=== PATIENT | male | born 1955 | race Caucasian/White ===

== ENCOUNTER 2017-06-29 07:58 | Inpatient (IN) | payer OTHER ==
[~2017-06-29 07:58] MED LIST: GLYCOPYRROLATE 0.4 MG INJ; NEOSTIGMINE 3 MG/3 ML SYRINGE
[2017-06-29] MEDS: ONDANSETRON 4 MG INJ IV ×2 (09:47→15:37)
[2017-06-29] MEDS: morphine 4 MG/ML VIAL IV (09:47)
[2017-06-29] MEDS: SOD CHLORIDE 0.9% 500 ML IV (09:47)
[2017-06-29 09:57] LABS: ADD MAN DIFF? NO
[2017-06-29 10:00] LABS: WHITE BLOOD COUNT 19.4 10^3/ul (4.8-10.8)
[2017-06-29 10:00] LABS: BASOPHIL # 0.1 10^3/ul (0.0-0.1); BASOPHILS % 0.3 % (0.0-2.0); EOSINOPHILS % 0.2 % (0.0-7.0); HEMOGLOBIN 17.2 g/dl (14.0-18.0); LYMPHOCYTES # 1.2 10^3/ul (0.8-2.9); LYMPHOCYTES % 6.1 % (15.0-51.0); MEAN CORPUSCULAR HGB CONC 33.7 g/dl (32.0-37.0); MEAN CORPUSCULAR VOLUME 97.7 fl (82.0-101.0); MEAN PLATELET VOLUME 9.1 fl (7.4-10.4); MONOCYTE # 0.6 10^3/ul (0.3-0.9); MONOCYTES % 3.1 % (0.0-11.0); NEUTROPHIL # 17.4 10^3/ul (1.6-7.5); NEUTROPHILS % 89.7 % (39.0-77.0); PLATELET COUNT 417 10^3/UL (140-415); RED BLOOD COUNT 5.22 10^6/ul (4.70-6.10)
[2017-06-29 10:19] LABS: ALANINE AMINOTRANSFERASE 48 IU/L (13-69); ALBUMIN 4.3 g/dl (3.3-4.9); ALBUMIN/GLOBULIN RATIO 0.97; ALKALINE PHOSPHATASE 90 IU/L (42-121); ANION GAP 18 (8-16); ASPARTATE AMINO TRANSFERASE 38 IU/L (15-46); BILIRUBIN,INDIRECT 0.8 mg/dl (0-1.1); BILIRUBIN,TOTAL 0.8 mg/dl (0.2-1.3); BLOOD UREA NITROGEN 13 mg/dl (7-20); CALCIUM 9.6 mg/dl (8.4-10.2); CARBON DIOXIDE 28 mmol/L (21-31); CHLORIDE 102 mmol/L (97-110); CREATININE 1.41 mg/dl (0.61-1.24); GLUCOSE 169 mg/dl (70-220); LIPASE 223 U/L (23-300); POTASSIUM 4.4 mmol/L (3.5-5.1); SODIUM 144 mmol/L (135-144); TOTAL PROTEIN 8.7 g/dl (6.1-8.1)
[2017-06-29 10:31] LABS: TROPONIN-I < 0.012 ng/ml (0.00-0.12)
[2017-06-29] MEDS: SOD CHLORIDE 0.9% 1,000 ML IV ×2 (11:35→18:27)
[2017-06-29] MEDS: metroNIDAZOLE 500 MG/NS (PMX) 100 ML IVPB ×2 (11:35→22:00)
[2017-06-29] MEDS: CIPROFLOXACIN 400MG/D5W 200 ML IVPB ×2 (12:05→23:36)
[2017-06-29 12:41] LABS: ADD UMIC YES; UR CLARITY CLEAR (CLEAR); UR COLOR YELLOW (YELLOW)
[2017-06-29 12:42] LABS: UR GLUCOSE (Dip) NEGATIVE (NEGATIVE); UR KETONES (Dip) NEGATIVE (NEGATIVE); UR SPECIFIC GRAVITY (Dip) 1.019 (1.003-1.030); UR TOTAL PROTEIN (Dip) 2+ mg/dl (NEGATIVE)
[2017-06-29 12:43] LABS: UR ASCORBIC ACID NEGATIVE (NEGATIVE); UR BILIRUBIN (Dip) NEGATIVE (NEGATIVE); UR BLOOD (Dip) 2+ mg/dL (NEGATIVE); UR LEUKOCYTE ESTERASE (Dip) NEGATIVE Leu/ul (NEGATIVE); UR NITRITE (Dip) NEGATIVE (NEGATIVE); UR UROBILINOGEN (Dip) 2+ mg/dL (NEGATIVE)
[2017-06-29 12:57] LABS: INR 1.09; PROTIME 14.2 Sec (11.9-14.9); PT RATIO 1.1
[2017-06-29 12:58] LABS: PARTIAL THROMBOPLASTIN TIME 26.2 Sec (25.0-35.0)
[2017-06-29] MEDS ORDERED: MIDAZOLAM 1 MG/ML 2 ML INJ (13:04)
[2017-06-29] MEDS ORDERED: PHENYLephrine (100 MCG/ML) 5ML SYG (13:22)
[2017-06-29] MEDS ORDERED: PHENYLephrine 10 MG INJ (13:28)
[2017-06-29] MEDS ORDERED: METHYLENE BLUE 1% 10 ML INJ (14:01)
[2017-06-29 14:33] LABS: UR BACTERIA FEW /HPF (NONE SEEN); UR SQUAMOUS EPITHELIAL CELL FEW /HPF (FEW)
[2017-06-29] MEDS ORDERED: ETOMIDATE 20 MG INJ (14:41)
[2017-06-29] MEDS ORDERED: SUCCINYLCHOLINE CHLORIDE 100 MG/5 ML SYG IV (14:41)
[2017-06-29] MEDS ORDERED: ROCURONIUM 50 MG INJ (14:41)
[2017-06-29] MEDS ORDERED: LIDOCAINE 2% (SDV) 5 ML INJ (14:41)
[2017-06-29] MEDS ORDERED: metroNIDAZOLE 500 MG/NS (PMX) 100 ML IVPB (14:54)
[2017-06-29] MEDS ORDERED: CEFAZOLIN 1 GM INJ (14:54)
[2017-06-29] MEDS ORDERED: 1/2 NS + KCL 20 MEQ 1,000 ML IV (15:00)
[2017-06-29] MEDS ORDERED: ONDANSETRON 4 MG INJ IV ×2 (15:19→15:30)
[2017-06-29] MEDS ORDERED: EPHEDrine SULFATE 50 MG/5 ML SYG IV (15:30)
[2017-06-29] MEDS ORDERED: FENTAnyl 50 MCG/ML VIAL IV (15:30)
[2017-06-29] MEDS ORDERED: HYDROmorphONE (0.2 MG/ML) 10ML SYG IV (15:30)
[2017-06-29] MEDS ORDERED: DIPHENHYDRAMINE 50 MG INJ IV (15:30)
[2017-06-29] MEDS ORDERED: MEPERIDINE 25 MG INJ IV (15:30)
[2017-06-29] MEDS: HYDROmorphONE (0.2 MG/ML) 10ML SYG IV (15:52)
[2017-06-29] MEDS ORDERED: SOD CHLORIDE 0.9% 1,000 ML IV (16:48)
[2017-06-29] MEDS ORDERED: ACETAMINOPHEN 325 MG TAB PO (17:00)
[2017-06-29] MEDS ORDERED: ACETAMINOPHEN 650 MG SUPP PR (17:00)
[2017-06-29] MEDS ORDERED: NACL 0.9% 3 ML SYG IV (17:00)
[2017-06-29] MEDS: HYDROmorphONE 0.5 MG/0.5 ML SYG IV ×2 (18:31→22:16)
[2017-06-29] MEDS ORDERED: CIPROFLOXACIN 400MG/D5W 200 ML IVPB (21:00)
[2017-06-29] MEDS: PANTOPRAZOLE 40 MG INJ IV (22:12)
[2017-06-29] MEDS: CEFEPIME 1GM/50 ML (PMX) 50 ML IVPB (22:16)
[2017-06-30] MEDS: metroNIDAZOLE 500 MG/NS (PMX) 100 ML IVPB ×4 (00:54→22:17)
[2017-06-30] MEDS: SOD CHLORIDE 0.9% 1,000 ML IV ×4 (01:00→18:03)
[2017-06-30 05:07] LABS: ADD MAN DIFF? NO
[2017-06-30 05:11] LABS: BASOPHILS % 0.1 % (0.0-2.0); HEMATOCRIT 43.5 % (42.0-52.0); HEMOGLOBIN 14.7 g/dl (14.0-18.0); LYMPHOCYTES # 0.9 10^3/ul (0.8-2.9); LYMPHOCYTES % 4.6 % (15.0-51.0); MEAN CORPUSCULAR HEMOGLOBIN 33.4 pg (29.0-33.0); MEAN CORPUSCULAR HGB CONC 33.8 g/dl (32.0-37.0); MEAN CORPUSCULAR VOLUME 98.9 fl (82.0-101.0); MEAN PLATELET VOLUME 9.1 fl (7.4-10.4); MONOCYTE # 0.8 10^3/ul (0.3-0.9); MONOCYTES % 4.2 % (0.0-11.0); NEUTROPHIL # 17.9 10^3/ul (1.6-7.5); NEUTROPHILS % 90.6 % (39.0-77.0); PLATELET COUNT 306 10^3/UL (140-415); RED CELL DISTRIBUTION WIDTH 12.5 % (11.5-14.5)
[2017-06-30 05:11] LABS: WHITE BLOOD COUNT 19.7 10^3/ul (4.8-10.8)
[2017-06-30 05:35] LABS: ALANINE AMINOTRANSFERASE 40 IU/L (13-69); ALBUMIN 3.1 g/dl (3.3-4.9); ALKALINE PHOSPHATASE 53 IU/L (42-121); ANION GAP 14 (8-16); ASPARTATE AMINO TRANSFERASE 31 IU/L (15-46); BILIRUBIN,INDIRECT 0.5 mg/dl (0-1.1); BILIRUBIN,TOTAL 0.5 mg/dl (0.2-1.3); BLOOD UREA NITROGEN 16 mg/dl (7-20); CALCIUM 8.2 mg/dl (8.4-10.2); CARBON DIOXIDE 27 mmol/L (21-31); CHLORIDE 105 mmol/L (97-110); CREATININE 1.47 mg/dl (0.61-1.24); GLUCOSE 120 mg/dl (70-220); POTASSIUM 5.1 mmol/L (3.5-5.1); SODIUM 141 mmol/L (135-144); TOTAL PROTEIN 6.2 g/dl (6.1-8.1)
[2017-06-30 05:38] LABS: MAGNESIUM 1.4 mg/dl (1.7-2.5)
[2017-06-30 05:38] LABS: PHOSPHORUS 3.8 mg/dl (2.5-4.9)
[2017-06-30] MEDS ORDERED: PANTOPRAZOLE 40 MG INJ IV (06:00)
[2017-06-30] MEDS: PANTOPRAZOLE 40 MG INJ IV ×2 (09:34→21:12)
[2017-06-30 09:36] LABS: HDL CHOLESTEROL 27 mg/dl (30-78); TRIGLYCERIDES 77 mg/dl (0-149)
[2017-06-30 09:40] LABS: CHOLESTEROL < 50 mg/dl (100-200)
[2017-06-30 09:41] LABS: HEMOGLOBIN A1C 6.3 % (0-5.9)
[2017-06-30] MEDS: CEFEPIME 1GM/50 ML (PMX) 50 ML IVPB ×2 (10:52→21:12)
[2017-06-30] MEDS: MAGNESIUM SULFATE 3 GM in DEXTROSE 5% 100 ML IVPB (10:53)
[2017-06-30] MEDS: HYDROmorphONE 0.5 MG/0.5 ML SYG IV (21:14)
[2017-07-01] MEDS: SOD CHLORIDE 0.9% 1,000 ML IV ×6 (01:00→23:49)
[2017-07-01 05:17] LABS: ADD MAN DIFF? NO
[2017-07-01] MEDS: metroNIDAZOLE 500 MG/NS (PMX) 100 ML IVPB ×3 (05:20→21:26)
[2017-07-01 05:22] LABS: BASOPHILS % 0.2 % (0.0-2.0); EOSINOPHILS % 0.1 % (0.0-7.0); HEMATOCRIT 39.8 % (42.0-52.0); HEMOGLOBIN 12.9 g/dl (14.0-18.0); LYMPHOCYTES # 0.9 10^3/ul (0.8-2.9); LYMPHOCYTES % 5.3 % (15.0-51.0); MEAN CORPUSCULAR HEMOGLOBIN 33.1 pg (29.0-33.0); MEAN CORPUSCULAR HGB CONC 32.4 g/dl (32.0-37.0); MEAN CORPUSCULAR VOLUME 102.1 fl (82.0-101.0); MEAN PLATELET VOLUME 9.3 fl (7.4-10.4); MONOCYTE # 0.9 10^3/ul (0.3-0.9); MONOCYTES % 5.2 % (0.0-11.0); NEUTROPHIL # 15.4 10^3/ul (1.6-7.5); NEUTROPHILS % 88.5 % (39.0-77.0); PLATELET COUNT 256 10^3/UL (140-415); RED CELL DISTRIBUTION WIDTH 12.6 % (11.5-14.5)
[2017-07-01 05:22] LABS: WHITE BLOOD COUNT 17.3 10^3/ul (4.8-10.8)
[2017-07-01 05:45] LABS: PHOSPHORUS 3.1 mg/dl (2.5-4.9)
[2017-07-01 05:45] LABS: MAGNESIUM 2.2 mg/dl (1.7-2.5)
[2017-07-01 05:54] LABS: ANION GAP 14 (8-16); BLOOD UREA NITROGEN 16 mg/dl (7-20); CALCIUM 8.4 mg/dl (8.4-10.2); CARBON DIOXIDE 26 mmol/L (21-31); CHLORIDE 108 mmol/L (97-110); CREATININE 1.41 mg/dl (0.61-1.24); GLUCOSE 102 mg/dl (70-220); POTASSIUM 4.9 mmol/L (3.5-5.1); SODIUM 143 mmol/L (135-144)
[2017-07-01] MEDS: INFLUENZA VIRUS VACCINE 0.5 ML (DISPENSING) IM* (09:00)
[2017-07-01] MEDS: CEFEPIME 1GM/50 ML (PMX) 50 ML IVPB ×2 (09:14→20:31)
[2017-07-01] MEDS: PANTOPRAZOLE 40 MG INJ IV ×2 (09:14→20:27)
[2017-07-01] MEDS: HYDROmorphONE 0.5 MG/0.5 ML SYG IV ×3 (09:14→23:49)
[2017-07-01] MEDS: LORAZEPAM 2 MG INJ IV (23:10)
[2017-07-02 00:16] LABS: CREATININE,URINE RANDOM 91.56 mg/dl (20-370)
[2017-07-02 00:40] LABS: SODIUM,URINE RANDOM 175 mmol/L (30-90)
[2017-07-02 05:07] LABS: ADD MAN DIFF? NO
[2017-07-02 05:11] LABS: BASOPHILS % 0.3 % (0.0-2.0); EOSINOPHILS # 0.1 10^3/ul (0.0-0.5); HEMATOCRIT 35.1 % (42.0-52.0); HEMOGLOBIN 11.7 g/dl (14.0-18.0); LYMPHOCYTES # 1.2 10^3/ul (0.8-2.9); LYMPHOCYTES % 11.1 % (15.0-51.0); MEAN CORPUSCULAR HEMOGLOBIN 33.6 pg (29.0-33.0); MEAN CORPUSCULAR HGB CONC 33.3 g/dl (32.0-37.0); MEAN CORPUSCULAR VOLUME 100.9 fl (82.0-101.0); MEAN PLATELET VOLUME 9.5 fl (7.4-10.4); MONOCYTE # 0.7 10^3/ul (0.3-0.9); MONOCYTES % 6.5 % (0.0-11.0); NEUTROPHILS % 80.7 % (39.0-77.0); PLATELET COUNT 215 10^3/UL (140-415); RED BLOOD COUNT 3.48 10^6/ul (4.70-6.10); RED CELL DISTRIBUTION WIDTH 12.7 % (11.5-14.5)
[2017-07-02 05:11] LABS: WHITE BLOOD COUNT 11.2 10^3/ul (4.8-10.8)
[2017-07-02 05:28] LABS: MAGNESIUM 2.1 mg/dl (1.7-2.5)
[2017-07-02 05:28] LABS: PHOSPHORUS 3.2 mg/dl (2.5-4.9)
[2017-07-02 05:40] LABS: ANION GAP 13 (8-16); BLOOD UREA NITROGEN 15 mg/dl (7-20); CALCIUM 8.4 mg/dl (8.4-10.2); CARBON DIOXIDE 24 mmol/L (21-31); CHLORIDE 110 mmol/L (97-110); CREATININE 1.13 mg/dl (0.61-1.24); GLUCOSE 74 mg/dl (70-220); POTASSIUM 3.9 mmol/L (3.5-5.1); SODIUM 143 mmol/L (135-144)
[2017-07-02] MEDS: metroNIDAZOLE 500 MG/NS (PMX) 100 ML IVPB ×3 (05:44→21:07)
[2017-07-02] MEDS: HYDROmorphONE 0.5 MG/0.5 ML SYG IV ×4 (05:44→20:04)
[2017-07-02 06:54] LABS: URIC ACID 4.7 mg/dl (3.1-7.9)
[2017-07-02 06:54] LABS: CREATINE KINASE 101 IU/L (23-200)
[2017-07-02] MEDS: CEFEPIME 1GM/50 ML (PMX) 50 ML IVPB ×2 (09:20→20:02)
[2017-07-02] MEDS: PANTOPRAZOLE 40 MG INJ IV ×2 (09:20→20:02)
[2017-07-02] MEDS: SOD CHLORIDE 0.9% 1,000 ML IV ×2 (09:21→19:54)
[2017-07-03] MEDS: HYDROmorphONE 0.5 MG/0.5 ML SYG IV (00:08)
[2017-07-03] MEDS: SOD CHLORIDE 0.9% 1,000 ML IV ×3 (01:00→15:39)
[2017-07-03 05:20] LABS: ADD MAN DIFF? NO
[2017-07-03 05:27] LABS: WHITE BLOOD COUNT 8.9 10^3/ul (4.8-10.8)
[2017-07-03 05:27] LABS: BASOPHILS % 0.3 % (0.0-2.0); EOSINOPHILS # 0.2 10^3/ul (0.0-0.5); EOSINOPHILS % 1.9 % (0.0-7.0); HEMOGLOBIN 11.9 g/dl (14.0-18.0); LYMPHOCYTES # 1.2 10^3/ul (0.8-2.9); LYMPHOCYTES % 13.1 % (15.0-51.0); MEAN CORPUSCULAR HEMOGLOBIN 33.1 pg (29.0-33.0); MEAN CORPUSCULAR HGB CONC 33.1 g/dl (32.0-37.0); MEAN CORPUSCULAR VOLUME 100.3 fl (82.0-101.0); MEAN PLATELET VOLUME 9.5 fl (7.4-10.4); MONOCYTE # 0.8 10^3/ul (0.3-0.9); MONOCYTES % 8.8 % (0.0-11.0); NEUTROPHIL # 6.7 10^3/ul (1.6-7.5); NEUTROPHILS % 75.3 % (39.0-77.0); PLATELET COUNT 223 10^3/UL (140-415); RED BLOOD COUNT 3.59 10^6/ul (4.70-6.10); RED CELL DISTRIBUTION WIDTH 12.2 % (11.5-14.5)
[2017-07-03] MEDS: metroNIDAZOLE 500 MG/NS (PMX) 100 ML IVPB ×3 (05:27→22:01)
[2017-07-03 05:43] LABS: PHOSPHORUS 3.8 mg/dl (2.5-4.9)
[2017-07-03 05:43] LABS: MAGNESIUM 1.9 mg/dl (1.7-2.5)
[2017-07-03 05:48] LABS: ANION GAP 15 (8-16); BLOOD UREA NITROGEN 15 mg/dl (7-20); CALCIUM 8.5 mg/dl (8.4-10.2); CARBON DIOXIDE 24 mmol/L (21-31); CHLORIDE 107 mmol/L (97-110); GLUCOSE 72 mg/dl (70-220); POTASSIUM 4.2 mmol/L (3.5-5.1); SODIUM 142 mmol/L (135-144)
[2017-07-03] MEDS: PANTOPRAZOLE 40 MG INJ IV ×2 (09:05→20:56)
[2017-07-03] MEDS: CEFEPIME 1GM/50 ML (PMX) 50 ML IVPB ×2 (09:06→20:56)
[2017-07-03] MEDS: OXYCODONE/ACETAMINOPHEN (5/325) TAB PO ×2 (09:06→20:57)
[2017-07-03] MEDS ORDERED: ALBUTEROL 0.083% (NEB) 2.5 MG/3 ML AMP HHN (10:00)
[2017-07-03] MEDS: ALBUTEROL 0.083% (NEB) 2.5 MG/3 ML AMP HHN ×2 (14:09→20:12)
[2017-07-03] MEDS: ISOSORBIDE MONONITRATE(SR)30 MG TAB PO (15:39)
[2017-07-03] MEDS: BENAZEPRIL 5 MG TAB PO (15:40)
[2017-07-03] MEDS: MAGNESIUM HYDROXIDE 30ML CUP PO (22:01)
[2017-07-04] MEDS: OXYCODONE/ACETAMINOPHEN (5/325) TAB PO ×3 (02:50→16:58)
[2017-07-04] MEDS: BISACODYL (EC) 5 MG TAB PO (02:52)
[2017-07-04 05:28] LABS: ADD MAN DIFF? NO
[2017-07-04 05:38] LABS: BASOPHILS % 0.4 % (0.0-2.0); EOSINOPHILS # 0.1 10^3/ul (0.0-0.5); EOSINOPHILS % 1.7 % (0.0-7.0); HEMATOCRIT 34.7 % (42.0-52.0); HEMOGLOBIN 11.6 g/dl (14.0-18.0); LYMPHOCYTES # 1.2 10^3/ul (0.8-2.9); LYMPHOCYTES % 17.2 % (15.0-51.0); MEAN CORPUSCULAR HEMOGLOBIN 33.1 pg (29.0-33.0); MEAN CORPUSCULAR HGB CONC 33.4 g/dl (32.0-37.0); MEAN CORPUSCULAR VOLUME 99.1 fl (82.0-101.0); MONOCYTE # 0.9 10^3/ul (0.3-0.9); MONOCYTES % 12.7 % (0.0-11.0); NEUTROPHIL # 4.7 10^3/ul (1.6-7.5); NEUTROPHILS % 67.4 % (39.0-77.0); PLATELET COUNT 227 10^3/UL (140-415); RED CELL DISTRIBUTION WIDTH 12.2 % (11.5-14.5)
[2017-07-04] MEDS: metroNIDAZOLE 500 MG/NS (PMX) 100 ML IVPB (05:43)
[2017-07-04 06:45] LABS: ALANINE AMINOTRANSFERASE 27 IU/L (13-69); ALBUMIN 3.1 g/dl (3.3-4.9); ALBUMIN/GLOBULIN RATIO 0.93; ALKALINE PHOSPHATASE 45 IU/L (42-121); ANION GAP 16 (8-16); ASPARTATE AMINO TRANSFERASE 22 IU/L (15-46); BILIRUBIN,INDIRECT 0.3 mg/dl (0-1.1); BILIRUBIN,TOTAL 0.3 mg/dl (0.2-1.3); BLOOD UREA NITROGEN 12 mg/dl (7-20); CALCIUM 8.4 mg/dl (8.4-10.2); CARBON DIOXIDE 28 mmol/L (21-31); CHLORIDE 104 mmol/L (97-110); CREATININE 0.98 mg/dl (0.61-1.24); GLUCOSE 93 mg/dl (70-220); POTASSIUM 4.9 mmol/L (3.5-5.1); SODIUM 143 mmol/L (135-144); TOTAL PROTEIN 6.4 g/dl (6.1-8.1)
[2017-07-04 06:48] LABS: MAGNESIUM 1.9 mg/dl (1.7-2.5)
[2017-07-04] MEDS: ALBUTEROL 0.083% (NEB) 2.5 MG/3 ML AMP HHN ×3 (08:05→20:15)
[2017-07-04] MEDS: PANTOPRAZOLE 40 MG INJ IV ×2 (08:56→21:24)
[2017-07-04] MEDS: CEFEPIME 1GM/50 ML (PMX) 50 ML IVPB (08:56)
[2017-07-04] MEDS: ISOSORBIDE MONONITRATE(SR)30 MG TAB PO (08:57)
[2017-07-04] MEDS: BENAZEPRIL 5 MG TAB PO (08:57)
[2017-07-04] MEDS: SOD CHLORIDE 0.9% 1,000 ML IV (11:34)
[2017-07-04] MEDS: metroNIDAZOLE 500 MG TAB PO ×2 (13:33→21:24)
[2017-07-04] MEDS: CIPROFLOXACIN 500 MG TAB PO (18:07)
[2017-07-04] MEDS: MAGNESIUM HYDROXIDE 30ML CUP PO (21:27)
[2017-07-05] MEDS: ONDANSETRON 4 MG INJ IV (00:07)
[2017-07-05] MEDS: SOD CHLORIDE 0.9% 1,000 ML IV (02:12)
[2017-07-05 05:12] LABS: ADD MAN DIFF? NO
[2017-07-05 05:14] LABS: WHITE BLOOD COUNT 6.6 10^3/ul (4.8-10.8)
[2017-07-05 05:14] LABS: BASOPHILS % 0.5 % (0.0-2.0); EOSINOPHILS # 0.1 10^3/ul (0.0-0.5); EOSINOPHILS % 1.5 % (0.0-7.0); HEMATOCRIT 34.7 % (42.0-52.0); HEMOGLOBIN 11.6 g/dl (14.0-18.0); LYMPHOCYTES # 1.2 10^3/ul (0.8-2.9); LYMPHOCYTES % 18.7 % (15.0-51.0); MEAN CORPUSCULAR HEMOGLOBIN 32.6 pg (29.0-33.0); MEAN CORPUSCULAR HGB CONC 33.4 g/dl (32.0-37.0); MEAN CORPUSCULAR VOLUME 97.5 fl (82.0-101.0); MEAN PLATELET VOLUME 9.8 fl (7.4-10.4); MONOCYTE # 0.9 10^3/ul (0.3-0.9); MONOCYTES % 13.6 % (0.0-11.0); NEUTROPHIL # 4.3 10^3/ul (1.6-7.5); NEUTROPHILS % 65.2 % (39.0-77.0); PLATELET COUNT 235 10^3/UL (140-415); RED BLOOD COUNT 3.56 10^6/ul (4.70-6.10)
[2017-07-05 05:34] LABS: ANION GAP 11 (8-16); BLOOD UREA NITROGEN 8 mg/dl (7-20); CALCIUM 8.4 mg/dl (8.4-10.2); CARBON DIOXIDE 31 mmol/L (21-31); CHLORIDE 103 mmol/L (97-110); CREATININE 0.93 mg/dl (0.61-1.24); GLUCOSE 124 mg/dl (70-220); POTASSIUM 3.9 mmol/L (3.5-5.1); SODIUM 141 mmol/L (135-144)
[2017-07-05] MEDS: OXYCODONE/ACETAMINOPHEN (5/325) TAB PO (05:48)
[2017-07-05] MEDS: CIPROFLOXACIN 500 MG TAB PO (05:49)
[2017-07-05 05:51] LABS: MAGNESIUM 1.9 mg/dl (1.7-2.5)
[2017-07-05 05:51] LABS: PHOSPHORUS 3.9 mg/dl (2.5-4.9)
[2017-07-05] MEDS: ALBUTEROL 0.083% (NEB) 2.5 MG/3 ML AMP HHN (08:19)
[2017-07-05] MEDS: PANTOPRAZOLE 40 MG INJ IV (08:32)
[2017-07-05] MEDS: BENAZEPRIL 5 MG TAB PO (08:33)
[2017-07-05] MEDS: ISOSORBIDE MONONITRATE(SR)30 MG TAB PO (08:33)
[2017-07-05] MEDS: metroNIDAZOLE 500 MG TAB PO (08:34)
== END 2017-07-05 12:34 | disposition home or self-care (01) | DRG 329 ==
LOC: E/R 07:58 → MS1 18:55
PROC: 0DU907Z Supplement Duodenum with Autologous Tissue Substitute, Open Approach (ICD-10-PCS; principal; 2017-06-29 13:10)
PROC: 0W3P0ZZ Control Bleeding in Gastrointestinal Tract, Open Approach (ICD-10-PCS; 2017-06-29 13:10)
DX: K26.1 Acute duodenal ulcer with perforation (principal); K65.9 Peritonitis, unspecified; N17.0 Acute kidney failure with tubular necrosis; I25.10 Atherosclerotic heart disease of native coronary artery without angina pectoris; E78.5 Hyperlipidemia, unspecified; R73.03 Prediabetes; K21.9 Gastro-esophageal reflux disease without esophagitis; J45.909 Unspecified asthma, uncomplicated; D64.9 Anemia, unspecified; I12.9 Hypertensive chronic kidney disease with stage 1 through stage 4 chronic kidney disease, or unspecified chronic kidney disease; N18.9 Chronic kidney disease, unspecified; E66.9 Obesity, unspecified; Z68.34 Body mass index [BMI] 34.0-34.9, adult; Z79.82 Long term (current) use of aspirin; Z59.0 Homelessness
CPT/HCPCS: 36415; 71045; 74176; 76705; 80048; 80053; 80061; 81001; 82550; 83036; 83690; 83735; 84100; 84155; 84300; 84484; 84560; 85025; 85610; 85730; 87040; 89190; 93005; 94640; 94664; 96374; 96375; 97110; 97116; 97162; 97530; 99291-25

== ENCOUNTER 2018-07-05 17:55 | Inpatient (IN) | payer OTHER ==
[2018-07-05 18:30] LABS: ADD MAN DIFF? NO
[2018-07-05] MEDS: NITROGLYCERIN 2% 1 GM OINT PKT TD (18:34)
[2018-07-05 18:35] LABS: WHITE BLOOD COUNT 8.5 10^3/ul (4.8-10.8)
[2018-07-05 18:35] LABS: BASOPHILS % 0.5 % (0.0-2.0); EOSINOPHILS # 0.9 10^3/ul (0.0-0.5); EOSINOPHILS % 10.1 % (0.0-7.0); HEMATOCRIT 34.9 % (42.0-52.0); HEMOGLOBIN 11.6 g/dl (14.0-18.0); LYMPHOCYTES # 1.5 10^3/ul (0.8-2.9); LYMPHOCYTES % 17.9 % (15.0-51.0); MEAN CORPUSCULAR HEMOGLOBIN 34.1 pg (29.0-33.0); MEAN CORPUSCULAR HGB CONC 33.2 g/dl (32.0-37.0); MEAN CORPUSCULAR VOLUME 102.6 fl (82.0-101.0); MEAN PLATELET VOLUME 9.4 fl (7.4-10.4); MONOCYTE # 0.9 10^3/ul (0.3-0.9); MONOCYTES % 10.2 % (0.0-11.0); NEUTROPHIL # 5.2 10^3/ul (1.6-7.5); NEUTROPHILS % 60.8 % (39.0-77.0); PLATELET COUNT 229 10^3/UL (140-415); RED CELL DISTRIBUTION WIDTH 13.3 % (11.5-14.5)
[2018-07-05 18:49] LABS: INR 1.16; PROTIME 14.9 Sec (11.9-14.9); PT RATIO 1.2
[2018-07-05 18:51] LABS: ALANINE AMINOTRANSFERASE 53 IU/L (13-69); ALBUMIN 3.7 g/dl (3.3-4.9); ALBUMIN/GLOBULIN RATIO 1.12; ALKALINE PHOSPHATASE 65 IU/L (42-121); ANION GAP 10 (5-13); ASPARTATE AMINO TRANSFERASE 119 IU/L (15-46); BILIRUBIN,INDIRECT 0.9 mg/dl (0-1.1); BILIRUBIN,TOTAL 0.9 mg/dl (0.2-1.3); BLOOD UREA NITROGEN 15 mg/dl (7-20); CALCIUM 8.5 mg/dl (8.4-10.2); CARBON DIOXIDE 27 mmol/L (21-31); CHLORIDE 104 mmol/L (97-110); CREATININE 1.38 mg/dl (0.61-1.24); Estimated GFR 52 mL/min (>60); GLUCOSE 118 mg/dl (70-220); POTASSIUM 3.7 mmol/L (3.5-5.1); SODIUM 141 mmol/L (135-144)
[2018-07-05] MEDS: FUROSEMIDE 40 MG INJ IV (19:00)
[2018-07-05 19:03] LABS: B-TYPE NATRIURETIC PEPTIDE 4350 PG/ML (0-125)
[2018-07-05 19:09] LABS: PARTIAL THROMBOPLASTIN TIME 30.3 Sec (23.0-35.0)
[2018-07-05] MEDS ORDERED: NACL 0.9% 3 ML SYG IV (19:30)
[2018-07-05] MEDS ORDERED: HYDROmorphONE 0.5 MG/0.5 ML SYG IV (19:30)
[2018-07-05] MEDS: HEPARIN 1000 UNITS/ML 10 ML INJ IV (19:49)
[2018-07-05] MEDS: HEPARIN 25000 UNITS/250 ML 250 ML IV (19:50)
[2018-07-05] MEDS ORDERED: ONDANSETRON 4 MG INJ IV (20:00)
[2018-07-05] MEDS ORDERED: ACETAMINOPHEN 325 MG TAB PO (20:00)
[2018-07-05] MEDS: IVERMECTIN 3 MG TAB PO (21:50)
[2018-07-05] MEDS: PERMETHRIN 5% 60 GM CR TOP (21:52)
[2018-07-05] MEDS: ATORVASTATIN 80 MG TAB PO (21:52)
[2018-07-05] MEDS: METOPROLOL 50 MG TAB PO (21:53)
[2018-07-06] MEDS: SOD CHLORIDE 0.9% 1,000 ML IV (00:53)
[2018-07-06 03:01] LABS: PARTIAL THROMBOPLASTIN TIME 56.9 Sec (23.0-35.0)
[2018-07-06] MEDS: HEPARIN 25000 UNITS/250 ML 250 ML IV ×2 (03:30→12:47)
[2018-07-06 06:09] LABS: ADD MAN DIFF? NO
[2018-07-06] MEDS: PANTOPRAZOLE (EC) 40 MG TAB PO (06:15)
[2018-07-06] MEDS: FUROSEMIDE 40 MG INJ IV ×3 (06:15→22:29)
[2018-07-06 06:17] LABS: WHITE BLOOD COUNT 8.4 10^3/ul (4.8-10.8)
[2018-07-06 06:17] LABS: BASOPHIL # 0.1 10^3/ul (0.0-0.1); BASOPHILS % 0.6 % (0.0-2.0); HEMATOCRIT 37.3 % (42.0-52.0); HEMOGLOBIN 12.1 g/dl (14.0-18.0); LYMPHOCYTES # 1.6 10^3/ul (0.8-2.9); LYMPHOCYTES % 19.5 % (15.0-51.0); MEAN CORPUSCULAR HEMOGLOBIN 33.6 pg (29.0-33.0); MEAN CORPUSCULAR HGB CONC 32.4 g/dl (32.0-37.0); MEAN CORPUSCULAR VOLUME 103.6 fl (82.0-101.0); MEAN PLATELET VOLUME 9.6 fl (7.4-10.4); MONOCYTE # 0.9 10^3/ul (0.3-0.9); MONOCYTES % 10.6 % (0.0-11.0); NEUTROPHIL # 4.8 10^3/ul (1.6-7.5); NEUTROPHILS % 56.8 % (39.0-77.0); PLATELET COUNT 229 10^3/UL (140-415); RED CELL DISTRIBUTION WIDTH 13.2 % (11.5-14.5)
[2018-07-06 06:50] LABS: ALANINE AMINOTRANSFERASE 58 IU/L (13-69); ALBUMIN 3.7 g/dl (3.3-4.9); ALBUMIN/GLOBULIN RATIO 1.08; ALKALINE PHOSPHATASE 67 IU/L (42-121); ANION GAP 9 (5-13); ASPARTATE AMINO TRANSFERASE 115 IU/L (15-46); BILIRUBIN,INDIRECT 0.7 mg/dl (0-1.1); BILIRUBIN,TOTAL 0.7 mg/dl (0.2-1.3); BLOOD UREA NITROGEN 20 mg/dl (7-20); CARBON DIOXIDE 28 mmol/L (21-31); CHLORIDE 102 mmol/L (97-110); Estimated GFR 51 mL/min (>60); GLUCOSE 123 mg/dl (70-220); POTASSIUM 4.4 mmol/L (3.5-5.1); SODIUM 139 mmol/L (135-144); TOTAL PROTEIN 7.1 g/dl (6.1-8.1)
[2018-07-06] MEDS ORDERED: MIDAZOLAM 1 MG/ML 2 ML INJ (07:38)
[2018-07-06] MEDS ORDERED: HEPARIN 1000 UNITS/ML 10 ML INJ (07:38)
[2018-07-06] MEDS ORDERED: FENTAnyl 50 MCG/ML VIAL (07:38)
[2018-07-06] MEDS ORDERED: LIDOCAINE 1% (MDV) 20 ML INJ (07:38)
[2018-07-06] MEDS ORDERED: VERAPAMIL 5 MG INJ (07:38)
[2018-07-06] MEDS ORDERED: NITROGLYCERIN (IC) 100 MCG/ML INJ (07:38)
[2018-07-06] MEDS ORDERED: IODIXANOL LOCM 100 ML BTL ×2 (07:38→08:13)
[2018-07-06] MEDS ORDERED: SOD CHLORIDE 0.9% 500 ML (07:39)
[2018-07-06] MEDS: ASPIRIN 81 MG TAB PO (10:02)
[2018-07-06] MEDS: LISINOPRIL 5 MG TAB PO (10:02)
[2018-07-06 10:34] LABS: PARTIAL THROMBOPLASTIN TIME 35.9 Sec (23.0-35.0)
[2018-07-06] MEDS: HEPARIN 1000 UNITS/ML 10 ML INJ IV ×2 (12:42→20:31)
[2018-07-06 19:44] LABS: PARTIAL THROMBOPLASTIN TIME 32.8 Sec (23.0-35.0)
[2018-07-06] MEDS: ATORVASTATIN 80 MG TAB PO (20:07)
[2018-07-06] MEDS: PERMETHRIN 5% 60 GM CR TOP (20:08)
[2018-07-07 01:59] LABS: PARTIAL THROMBOPLASTIN TIME 98.6 Sec (23.0-35.0)
[2018-07-07] MEDS: HEPARIN 25000 UNITS/250 ML 250 ML IV ×2 (04:20→21:30)
[2018-07-07] MEDS: FUROSEMIDE 40 MG INJ IV ×2 (05:57→13:25)
[2018-07-07] MEDS: PANTOPRAZOLE (EC) 40 MG TAB PO (06:09)
[2018-07-07 07:11] LABS: ADD MAN DIFF? NO
[2018-07-07 07:20] LABS: WHITE BLOOD COUNT 7.2 10^3/ul (4.8-10.8)
[2018-07-07 07:20] LABS: BASOPHIL # 0.1 10^3/ul (0.0-0.1); BASOPHILS % 0.8 % (0.0-2.0); EOSINOPHILS # 0.9 10^3/ul (0.0-0.5); EOSINOPHILS % 12.3 % (0.0-7.0); HEMATOCRIT 38.2 % (42.0-52.0); HEMOGLOBIN 12.5 g/dl (14.0-18.0); LYMPHOCYTES # 1.7 10^3/ul (0.8-2.9); LYMPHOCYTES % 23.6 % (15.0-51.0); MEAN CORPUSCULAR HEMOGLOBIN 33.4 pg (29.0-33.0); MEAN CORPUSCULAR HGB CONC 32.7 g/dl (32.0-37.0); MEAN CORPUSCULAR VOLUME 102.1 fl (82.0-101.0); MEAN PLATELET VOLUME 9.6 fl (7.4-10.4); MONOCYTE # 0.7 10^3/ul (0.3-0.9); MONOCYTES % 9.4 % (0.0-11.0); NEUTROPHIL # 3.9 10^3/ul (1.6-7.5); NEUTROPHILS % 53.5 % (39.0-77.0); PLATELET COUNT 241 10^3/UL (140-415); RED BLOOD COUNT 3.74 10^6/ul (4.70-6.10); RED CELL DISTRIBUTION WIDTH 13.1 % (11.5-14.5)
[2018-07-07 07:43] LABS: ANION GAP 10 (5-13); BLOOD UREA NITROGEN 24 mg/dl (7-20); CALCIUM 9.4 mg/dl (8.4-10.2); CARBON DIOXIDE 30 mmol/L (21-31); CHLORIDE 99 mmol/L (97-110); CREATININE 1.58 mg/dl (0.61-1.24); Estimated GFR 44 mL/min (>60); GLUCOSE 119 mg/dl (70-220); POTASSIUM 3.7 mmol/L (3.5-5.1); SODIUM 139 mmol/L (135-144)
[2018-07-07 08:04] LABS: PARTIAL THROMBOPLASTIN TIME 86.7 Sec (23.0-35.0)
[2018-07-07] MEDS: LISINOPRIL 5 MG TAB PO (09:09)
[2018-07-07] MEDS: ASPIRIN 81 MG TAB PO (09:09)
[2018-07-07 14:23] LABS: PARTIAL THROMBOPLASTIN TIME 75.8 Sec (23.0-35.0)
[2018-07-07] MEDS: ATORVASTATIN 80 MG TAB PO (20:34)
[2018-07-07 21:15] LABS: PARTIAL THROMBOPLASTIN TIME 62.6 Sec (23.0-35.0)
[2018-07-08 03:11] LABS: PARTIAL THROMBOPLASTIN TIME 61.5 Sec (23.0-35.0)
[2018-07-08] MEDS: PANTOPRAZOLE (EC) 40 MG TAB PO (05:47)
[2018-07-08 06:25] LABS: ANION GAP 9 (5-13); BLOOD UREA NITROGEN 28 mg/dl (7-20); CALCIUM 9.2 mg/dl (8.4-10.2); CARBON DIOXIDE 28 mmol/L (21-31); CHLORIDE 100 mmol/L (97-110); CREATININE 1.49 mg/dl (0.61-1.24); Estimated GFR 47 mL/min (>60); GLUCOSE 108 mg/dl (70-220); POTASSIUM 5.6 mmol/L (3.5-5.1); SODIUM 137 mmol/L (135-144)
[2018-07-08] MEDS ORDERED: MIDAZOLAM 1 MG/ML 2 ML INJ (07:45)
[2018-07-08] MEDS ORDERED: LIDOCAINE 1% (MDV) 20 ML INJ (07:45)
[2018-07-08] MEDS ORDERED: FENTAnyl 50 MCG/ML VIAL (07:45)
[2018-07-08] MEDS ORDERED: ASPIRIN 325 MG TAB (07:54)
[2018-07-08] MEDS ORDERED: CLOPIDOGREL 300 MG TAB (07:54)
[2018-07-08 07:58] LABS: POTASSIUM 4.7 mmol/L (3.5-5.1)
[2018-07-08] MEDS ORDERED: BIVALIRUDIN 250MG /NS 50 ML 50 ML IVPB ×2 (08:15→08:32)
[2018-07-08] MEDS ORDERED: NITROGLYCERIN (IC) 100 MCG/ML INJ (08:16)
[2018-07-08] MEDS: LISINOPRIL 5 MG TAB PO (09:00)
[2018-07-08] MEDS: ASPIRIN 81 MG TAB PO (09:00)
[2018-07-08] MEDS ORDERED: IODIXANOL LOCM 100 ML BTL (09:08)
[2018-07-08] MEDS ORDERED: FUROSEMIDE 40 MG INJ (09:28)
[2018-07-08] MEDS ORDERED: EPTIFIBATIDE 100 ML IV (09:30)
[2018-07-08] MEDS ORDERED: EPTIFIBATIDE 30 ML (09:30)
[2018-07-08] MEDS ORDERED: HEPARIN 1000 UNITS/ML 10 ML INJ (10:56)
[2018-07-08] MEDS: NORepinephrine 8MG/250 ML (PMX 250 ML IV (12:33)
[2018-07-08] MEDS: EPTIFIBATIDE 100 ML IV (12:36)
[2018-07-08] MEDS: FUROSEMIDE 40 MG INJ IV (17:36)
[2018-07-08] MEDS: ATORVASTATIN 80 MG TAB PO (20:02)
[2018-07-08] MEDS: morphine 2 MG INJ IV (21:20)
[2018-07-09] MEDS ORDERED: ZOLPIDEM 5 MG TAB PO (00:30)
[2018-07-09] MEDS ORDERED: DIPHENHYDRAMINE 50 MG INJ (00:37)
[2018-07-09] MEDS: DIPHENHYDRAMINE 50 MG INJ IM (00:40)
[2018-07-09] MEDS: FUROSEMIDE 40 MG INJ IV (05:27)
[2018-07-09] MEDS: PANTOPRAZOLE (EC) 40 MG TAB PO (05:27)
[2018-07-09 05:35] LABS: ADD MAN DIFF? NO
[2018-07-09 05:36] LABS: WHITE BLOOD COUNT 8.3 10^3/ul (4.8-10.8)
[2018-07-09 05:36] LABS: BASOPHIL # 0.1 10^3/ul (0.0-0.1); BASOPHILS % 0.7 % (0.0-2.0); EOSINOPHILS # 0.5 10^3/ul (0.0-0.5); EOSINOPHILS % 6.2 % (0.0-7.0); HEMATOCRIT 39.3 % (42.0-52.0); HEMOGLOBIN 12.9 g/dl (14.0-18.0); LYMPHOCYTES # 1.2 10^3/ul (0.8-2.9); LYMPHOCYTES % 14.4 % (15.0-51.0); MEAN CORPUSCULAR HEMOGLOBIN 33.5 pg (29.0-33.0); MEAN CORPUSCULAR HGB CONC 32.8 g/dl (32.0-37.0); MEAN CORPUSCULAR VOLUME 102.1 fl (82.0-101.0); MEAN PLATELET VOLUME 9.5 fl (7.4-10.4); MONOCYTE # 0.9 10^3/ul (0.3-0.9); MONOCYTES % 11.2 % (0.0-11.0); NEUTROPHIL # 5.6 10^3/ul (1.6-7.5); NEUTROPHILS % 67.1 % (39.0-77.0); PLATELET COUNT 280 10^3/UL (140-415); RED BLOOD COUNT 3.85 10^6/ul (4.70-6.10)
[2018-07-09 06:02] LABS: ANION GAP 13 (5-13); BLOOD UREA NITROGEN 24 mg/dl (7-20); CALCIUM 9.6 mg/dl (8.4-10.2); CARBON DIOXIDE 27 mmol/L (21-31); CHLORIDE 97 mmol/L (97-110); CREATININE 1.47 mg/dl (0.61-1.24); Estimated GFR 48 mL/min (>60); GLUCOSE 179 mg/dl (70-220); POTASSIUM 3.7 mmol/L (3.5-5.1); SODIUM 137 mmol/L (135-144)
[2018-07-09 06:04] LABS: MAGNESIUM 2.1 mg/dl (1.7-2.5)
[2018-07-09] MEDS ORDERED: DIPHENHYDRAMINE 50 MG INJ IV (06:30)
[2018-07-09] MEDS: NORepinephrine 8MG/250 ML (PMX 250 ML IV (07:50)
[2018-07-09] MEDS: CLOPIDOGREL 75 MG TAB PO (08:28)
[2018-07-09] MEDS: ASPIRIN 81 MG TAB PO (08:28)
[2018-07-09] MEDS: LISINOPRIL 5 MG TAB PO ×2 (09:00→09:58)
[2018-07-09] MEDS ORDERED: NORepinephrine 8MG/250 ML (PMX 250 ML IV (09:30)
[2018-07-09] MEDS: FUROSEMIDE 40 MG TAB PO (18:08)
[2018-07-09] MEDS: ATORVASTATIN 80 MG TAB PO (20:40)
[2018-07-10] MEDS: PANTOPRAZOLE (EC) 40 MG TAB PO (05:26)
[2018-07-10] MEDS: FUROSEMIDE 40 MG TAB PO ×2 (05:26→18:19)
[2018-07-10 07:20] LABS: ANION GAP 13 (5-13); BLOOD UREA NITROGEN 30 mg/dl (7-20); CALCIUM 9.5 mg/dl (8.4-10.2); CARBON DIOXIDE 26 mmol/L (21-31); CHLORIDE 99 mmol/L (97-110); CREATININE 1.66 mg/dl (0.61-1.24); Estimated GFR 42 mL/min (>60); GLUCOSE 119 mg/dl (70-220); POTASSIUM 4.2 mmol/L (3.5-5.1); SODIUM 138 mmol/L (135-144)
[2018-07-10] MEDS: LISINOPRIL 5 MG TAB PO (08:46)
[2018-07-10] MEDS: ASPIRIN 81 MG TAB PO (08:46)
[2018-07-10] MEDS: CLOPIDOGREL 75 MG TAB PO (08:46)
[2018-07-10] MEDS: ATORVASTATIN 80 MG TAB PO (20:51)
[2018-07-11] MEDS: PANTOPRAZOLE (EC) 40 MG TAB PO (06:19)
[2018-07-11] MEDS: FUROSEMIDE 40 MG TAB PO ×2 (06:20→17:19)
[2018-07-11] MEDS: CLOPIDOGREL 75 MG TAB PO (08:21)
[2018-07-11] MEDS: ASPIRIN 81 MG TAB PO (08:21)
[2018-07-11] MEDS: LISINOPRIL 5 MG TAB PO (08:21)
[2018-07-11 08:25] LABS: ADD MAN DIFF? NO
[2018-07-11 08:32] LABS: WHITE BLOOD COUNT 7.6 10^3/ul (4.8-10.8)
[2018-07-11 08:32] LABS: BASOPHIL # 0.1 10^3/ul (0.0-0.1); BASOPHILS % 0.8 % (0.0-2.0); EOSINOPHILS # 0.7 10^3/ul (0.0-0.5); EOSINOPHILS % 9.4 % (0.0-7.0); HEMATOCRIT 39.1 % (42.0-52.0); HEMOGLOBIN 12.7 g/dl (14.0-18.0); LYMPHOCYTES # 1.3 10^3/ul (0.8-2.9); LYMPHOCYTES % 17.6 % (15.0-51.0); MEAN CORPUSCULAR HEMOGLOBIN 32.9 pg (29.0-33.0); MEAN CORPUSCULAR HGB CONC 32.5 g/dl (32.0-37.0); MEAN CORPUSCULAR VOLUME 101.3 fl (82.0-101.0); MEAN PLATELET VOLUME 9.4 fl (7.4-10.4); MONOCYTE # 0.8 10^3/ul (0.3-0.9); MONOCYTES % 10.8 % (0.0-11.0); NEUTROPHIL # 4.6 10^3/ul (1.6-7.5); NEUTROPHILS % 60.9 % (39.0-77.0); PLATELET COUNT 278 10^3/UL (140-415); RED BLOOD COUNT 3.86 10^6/ul (4.70-6.10); RED CELL DISTRIBUTION WIDTH 12.5 % (11.5-14.5)
[2018-07-11 08:53] LABS: ANION GAP 11 (5-13); BLOOD UREA NITROGEN 29 mg/dl (7-20); CALCIUM 9.6 mg/dl (8.4-10.2); CARBON DIOXIDE 25 mmol/L (21-31); CHLORIDE 100 mmol/L (97-110); CREATININE 1.63 mg/dl (0.61-1.24); Estimated GFR 43 mL/min (>60); GLUCOSE 118 mg/dl (70-220); MAGNESIUM 2.3 mg/dl (1.7-2.5); PHOSPHORUS 4.4 mg/dl (2.5-4.9); POTASSIUM 4.2 mmol/L (3.5-5.1); SODIUM 136 mmol/L (135-144)
[2018-07-11 10:44] LABS: ADD UMIC YES; UR ASCORBIC ACID NEGATIVE (NEGATIVE); UR BILIRUBIN (Dip) NEGATIVE (NEGATIVE); UR BLOOD (Dip) 1+ mg/dL (NEGATIVE); UR CLARITY CLEAR (CLEAR); UR COLOR YELLOW (YELLOW); UR GLUCOSE (Dip) NEGATIVE (NEGATIVE); UR KETONES (Dip) NEGATIVE (NEGATIVE); UR LEUKOCYTE ESTERASE (Dip) NEGATIVE Leu/ul (NEGATIVE); UR MUCUS FEW /HPF (NONE SEEN); UR NITRITE (Dip) NEGATIVE (NEGATIVE); UR RBC 0 /HPF (0-5); UR SPECIFIC GRAVITY (Dip) 1.013 (1.003-1.030); UR TOTAL PROTEIN (Dip) NEGATIVE (NEGATIVE); UR UROBILINOGEN (Dip) NEGATIVE (NEGATIVE); UR WBC 1 /HPF (0-5)
[2018-07-11 11:07] LABS: SODIUM,URINE RANDOM 88 mmol/L (30-90)
[2018-07-13 14:52] LABS: CREATININE, RANDOM URINE 98 mg/dL (20-320); MICROALBUMIN 0.2 mg/dL; MICROALBUMIN/CREATININE RATIO 2 (<30)
== END 2018-07-11 18:40 | disposition home or self-care (01) | DRG 270 ==
LOC: E/R 17:55 → ICU 07-06 08:58 → TEL 07-09 22:11
PROC: 5A02210 Assistance with Cardiac Output using Balloon Pump, Continuous (ICD-10-PCS; principal; 2018-07-06 07:29)
PROC: 027034Z Dilation of Coronary Artery, One Artery with Drug-eluting Intraluminal Device, Percutaneous Approach (ICD-10-PCS; 2018-07-06 07:29)
PROC: 4A023N7 Measurement of Cardiac Sampling and Pressure, Left Heart, Percutaneous Approach (ICD-10-PCS; 2018-07-06 07:29)
PROC: 02703ZZ Dilation of Coronary Artery, One Artery, Percutaneous Approach (ICD-10-PCS; 2018-07-06 07:29)
PROC: B211YZZ Fluoroscopy of Multiple Coronary Arteries using Other Contrast (ICD-10-PCS; 2018-07-06 07:29)
PROC: B211YZZ Fluoroscopy of Multiple Coronary Arteries using Other Contrast (ICD-10-PCS; 2018-07-06 07:29)
DX: I21.4 Non-ST elevation (NSTEMI) myocardial infarction (principal); I50.23 Acute on chronic systolic (congestive) heart failure; R57.0 Cardiogenic shock; N17.9 Acute kidney failure, unspecified; I13.0 Hypertensive heart and chronic kidney disease with heart failure and stage 1 through stage 4 chronic kidney disease, or unspecified chronic kidney disease; J45.909 Unspecified asthma, uncomplicated; I25.2 Old myocardial infarction; I25.10 Atherosclerotic heart disease of native coronary artery without angina pectoris; B86 Scabies; I25.5 Ischemic cardiomyopathy; I25.82 Chronic total occlusion of coronary artery; I24.0 Acute coronary thrombosis not resulting in myocardial infarction; B85.0 Pediculosis due to Pediculus humanus capitis; N14.1 Nephropathy induced by other drugs, medicaments and biological substances; T50.8X5A Adverse effect of diagnostic agents, initial encounter; N18.9 Chronic kidney disease, unspecified; F17.200 Nicotine dependence, unspecified, uncomplicated; Z95.5 Presence of coronary angioplasty implant and graft; K27.9 Peptic ulcer, site unspecified, unspecified as acute or chronic, without hemorrhage or perforation; Z59.0 Homelessness; Z98.61 Coronary angioplasty status
CPT/HCPCS: 36415; 71045; 76775; 80048; 80053; 81001; 81003; 82043; 83036; 83735; 83880; 84100; 84132; 84155; 84300; 84484; 85025; 85610; 85730; 87081; 92928; 92929; 93005; 93306; 93458; 99285-25